=== PATIENT | male | born 2000 | race Caucasian/White ===

== ENCOUNTER 2021-03-23 14:22 | Outpatient (CLI) | payer BC | END 2021-03-23 14:23 | disposition home or self-care (01) | LOC: CSHULT 14:22 | PROVIDERS: ATTEND Student in an Organized Health Care Education/Training Program | DX: R19.09 Other intra-abdominal and pelvic swelling, mass and lump (principal); K40.90 Unilateral inguinal hernia, without obstruction or gangrene, not specified as recurrent | CPT/HCPCS: 76705 ==